=== PATIENT | female | born 1970 | race Caucasian/White ===

== ENCOUNTER 2024-09-30 10:25 | Emergency (ER) | payer OTHER, SELFPAY ==
[2024-09-30 10:26] VITALS: BMI 32.6
[2024-09-30 10:47] VITALS: BP 128/82; PULSE 66; RESP 18; TEMP 36.5; O2SAT 99
--- NOTE | 2024-09-30 10:49 | XR_ITS ---
EXAMINATION: Ankle, right 3 views . Technique: Ankle AP, oblique, lateral 3 views Date and time of exam: September 30, 2024 1144 hours INDICATIONS: Patient fell 2 days ago with injury to the ankle, ankle pain. FINDINGS: No ankle fracture or dislocation No foreign body Please see the foot report IMPRESSION: No ankle fracture
--- NOTE | 2024-09-30 10:49 | XR_ITS ---
Examination: Foot, right, 3 views Technique: AP, oblique, lateral views foot, 3 views Date and time of exam: September 30, 2024 1142 hours INDICATIONS: Patient fell 2 days ago with injury to the foot, foot pain FINDINGS: Acute fractures base fifth metatarsal, up to 2.5 mm separation at the fracture site No dislocation IMPRESSION: Acute fractures base fifth metatarsal
--- NOTE | 2024-09-30 12:00 | EDNOTE_ITS ---
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 Limitations: no limitations Related Data Previous Rx's ?Medication ?Instructions ?Recorded hydrocodone 5 mg-acetaminophen 325 1 tab PO BID PRN pa in #10 tabs 09/30/24 mg tablet ibuprofen 800 mg tablet 800 mg PO TID PRN pain #30 t abs 09/30/24 Allergies Allergy/AdvReac Type Severity Reaction Status Date / Time Penicillins Allergy Severe Rash Verified 09/30/24 12:07 Sulfa (Sulfonamide Allergy Severe Rash Verified 09/30/24 12:07 Antibiotics) Review of Systems Review of Systems Systems Reviewed: All systems reviewed, normal except as documented Constitutional Constitutional: Reports system reviewed and no additional complaints, except as documented, Denies fever(s) and Denies headache(s) Eyes Eyes: Reports system reviewed and no additional complaints, except as documented and Denies blurry vision ENT Ears, Nose, Mouth, and Throat: Reports system reviewed and no additional complaints, except as documented, Denies headache(s), Denies nasal congestion and Denies nasal discharge Cardiovascular Cardiovascular: Reports system reviewed and no additional complaints, except as documented, Denies chest pain and Denies dyspnea Respiratory Respiratory: Reports system reviewed and no additional complaints, except as documented, Denies chest congestion, Denies cough and Denies dyspnea Gastrointestinal Gastrointestinal: Reports system reviewed and no additional complaints, except as documented and Denies abdominal pain Musculoskeletal Musculoskeletal: Reports system reviewed and no additional complaints, except as documented, Reports arthralgias, Denies deformity and Reports joint swelling Integumentary/Breasts Skin/Breast: Reports system reviewed and no additional complaints, except as documented and Denies rash Neurologic Neurologic: Reports system reviewed and no additional complaints, except as documented, Reports as per HPI and Denies headache(s) Past Medical History Social History SMOKING STATUS: Never smoker ED Exam General Limitations: Present no limitations General appearance: Present alert and in no apparent distress Head Head exam: Present atraumatic Eye Eye exam: Present normal appearance, PERRL and EOMI ENT ENT exam: Present normal exam, normal oropharynx and mucous membranes moist Neck Neck exam: Present normal inspection, full ROM and trachea midline Chest Chest inspection: Present normal inspection and symmetric chest wall rise Respiratory Respiratory exam: Present normal lung sounds bilaterally Cardiovascular Cardiovascular exam: Present regular rate, normal rhythm and normal heart sounds Abdominal Exam Abdominal exam: Present soft and normal bowel sounds Extremities Exam Extremities exam: Present full ROM, tenderness, normal capillary refill, pedal edema and joint swelling; Absent calf tenderness Back Exam Back exam: Present normal inspection and full ROM Neurological Exam Neurological exam: Present alert, oriented X3 and CN II-XII intact Psychiatric Psychiatric exam: Present normal affect and normal mood Skin Skin exam: Present warm, dry, intact and normal color Course Quality Measures none Orders Category Date Time Status Splint / Immobilizer STAT Care 09/30/24 11:48 Active XR ankle comp RT min 3V Stat Exams 09/30/24 10:49 Completed XR foot comp RT min 3V Stat Exams 09/30/24 10:49 Completed Vital Signs Vital signs: Vital Signs Temperature 97.7 F 09/30/24 10:47 Pulse Rate 66 09/30/24 10:47 Respiratory Rate 18 09/30/24 10:47 Blood Pressure 128/82 09/30/24 10:47 Pulse Oximetry (%) 99 09/30/24 10:47 Oxygen Delivery Method Room Air 09/30/24 10:47 O2 saturation 99% room air within normal limits Procedures -ED Splint Fabrication: Clinician Made Type: Posterior Leg Reason for Splint: Optimal Positioning and Pain Management Circulation Distal to Splint: Yes Movement Distal to Splint: Yes Senation Distal to Splint: Yes Tolerance: Tolerates Well Extremity Injury, Lower MDM Narrative MDM Narrative:: 54-year-old female presents emergency department today complaints of right foot pain patient reports she believes she has a right fifth metatarsal fracture 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 On exam patient is swelling and tenderness to the dorsal aspect of the right foot Imaging obtained consistent with fracture of the right fifth metatarsal Patient placed in a posterior short leg splint patient already has her own crutches Patient was given a copy of her x-ray report as well as a disc with her images to bring back home as she lives in [place] Patient discharged home in no distress to follow-up with primary care doctor in the next 24 to 48 hours and for any worsening symptoms to return to the ER immediately Patient data External records reviewed:: [facility] previous records Clinical information provided by:: patient Social determinants that could affect healthcare access:: none Patient has the following chronic illnesses:: See history How is presenting disease/condition affected by chronic disease/condition?: uneffected by Evaluation data The following diagnostics were reviewed and interpreted by me:: radiology exam(s) Lab and/or radiology exams considered but not ordered:: Radiology obtained Interpretation Summary: Reviewed by me Medications / Prescriptions Medications or Prescriptions considered but not ordered:: Given Medication administrations:: Given Consultations Consultation(s) initiated? (list below): No Diagnosis Extremity Injury, Lower Differential Diagnosis: other Most likely diagnosis given after review of the tests above:: Foot fracture Admission Indicated Admission indicated?: not indicated Admission Request Was there a request for admission?: No Disposition Plan Disposition Plan: Discharge Discharge Attestation Discharge Attestation: The patient and all family members were given an opportunity to ask questions and understood the discharge instructions. Discharge instructions specifically effects, indications for sooner follow up or return to the emergency department, and the expected course of current diagnosis. Patient condition: Stable Discharge Plan Plan Patient Disposition: HOME (Self Care) Disposition Comment: stablee Prescriptions/Referrals Prescriptions/Med Rec: New ibuprofen 800 mg tablet 800 mg PO TID PRN (Reason: pain) Qty: 30 0RF hydrocodone-acetaminophen 5-325 mg tablet 1 tab PO BID MDD 10 PRN (Reason: pain) Qty: 10 0RF Referrals: CIARA BLACKMAN [Other] - 10/01/24 Problem List Clinical Impression: Fracture of right foot Patient/Caregiver Discharge Instructions Education Materials: [facility] [employer] [facility] Additional Instructions: Please follow-up with orthopedist as soon as possible for worsening symptoms return immediately Please remain nonweightbearing Print Language: Persian Stand Alone Forms: Jolie Award Info., Patient Portal Info Letter PA/MACHINE SET UP OPERATOR Supervising Physician PA/MACHINE SET UP OPERATOR Supervising Physician: Dr. [email or web address]
== END 2024-09-30 12:12 | disposition home or self-care (01) ==
PROVIDERS: Emergency Provider Family Medicine
DX: S92.351A Displaced fracture of fifth metatarsal bone, right foot, initial encounter for closed fracture (principal); X58.XXXA Exposure to other specified factors, initial encounter
CPT/HCPCS: 29515; 73610; 73630; 99283